=== PATIENT | female | born 1990 | race Two or more races ===

== ENCOUNTER 2019-02-17 20:50 | Inpatient (IN) | payer OTHER ==
[2019-02-17 21:02] VITALS: BMI 25.4
--- NOTE | 2019-02-17 21:25 | HP ---
COWS - Scale Resting Pulse: 2= [place] 101-120 Sweatin=Flushed/Facial Moisture Restless Observation: 1= Difficult to Sit Still Pupil Size: 0= Normal to Room Light Bone or Joint Aches: 4=Acute Joint/Muscle Pain Runny Nose/ Eye Tearin= Runny Nose/Eyes GI Upset > 30mins: 2= Nausea/Diarrhea Tremor Observation: 0= None Yawning Observation: 1= 1-2x During Session Anxiety or Irritability: 2=Irritable/Anxious Goose Flesh Skin: 0=Smooth Skin COWS Score: 16 CIWA Score - Admission Criteria OASAS Guidelines: Admission for Medically Managed Detox: Requires at least one of the followin. CIWA greater than 12 2. Seizures within the past 24 hours 3. Delirium tremens within the past 24 hours 4. Hallucinations within the past 24 hours 5. Acute intervention needed for co occurring medical disorder 6. Acute intervention needed for co occurring psychiatric disorder 7. Severe withdrawal that cannot be handled at a lower level of care (continued vomiting, continued diarrhea, abnormal vital signs) requiring intravenous medication and/or fluids 8. Admission [facility] Chief Complaint: c/o withdrawal sx's. seeking detox Allergies/Adverse Reactions: Allergies Allergy/AdvReac Type Severity Reaction Status Date / Time No Known Allergies Allergy Verified 02/17/19 20:55 History of Present Illness: 28 Y.O. MALE WITH HX/O OPIOID AND BENZO DEPENDENCE HERE FOR DETOX. CLIENT IS REFERRED BY HER SIGNIFICANT OTHER WHOM ALSO IS A PATIENT HERE. SHE PRESENTS WITH C/O WITHDRAWAL SX'S. COWS 16. SHEA 0.43. CLIENT STATES ALCOHOL IS NOT HER THING. DRINK MAYBE ONCE A WEEK. STATES SHE DOES NOT HAVE A PROBLEM WITH ALCOHOL. HER DRUG OF CHOICE IS HEROIN AND XANAX. UTOX +THC, FEN, MET, AMP. D/W CLIENT THAT HER URINE IS NEGATIVE FOR BENZO. SHE WILL BE TREATED WITH PRN KLONOPIN AND DETOXED WITH METHADONE FOR HER HEROIN USE. SHE REPORTS HEROIN USE DAILY, WELL THE XANAX BUT HAS NOT HAS XANAX IN THE LAST 2 DAYS. DENIES ANY SIGNIFICANT PERIOD OF CLEAN TIME. IVDU, + HX/O DRUG OVERDOSE, HX/O BENZO WITHDRAWAL SEIZURE REPORTED. LAST BEING OVER A YEAR AGO. HOMELESS, UNMEPLOYED, DENIES LEGALS PMHX-PCOS PSYCH- DEPRESSION, ANXIETY Exam Limitations: No Limitations - Ebola screening Have you traveled outside of the country in the last 21 days: No (N) Have you had contact with anyone from an Ebola affected area: No Do you have a fever: No - Review of Systems Constitutional: Chills, Loss of Appetite, Malaise, Night Sweats, Changes in sleep, Unintentional Wgt. Loss EENT: reports: Ear Pain (RIGHT EAR POPPING FOR A COUPLE OF WEEKS NOW. DENIES HEARING LOSS), Nose Congestion (RUNNY NOSE), Dental Problems (MISSING TEETH) Respiratory: reports: No Symptoms reported Cardiac: reports: No Symptoms Reported GI: reports: Poor Appetite, Poor Fluid Intake, Abdominal cramping : reports: No Symptoms Reported Musculoskeletal: reports: Back Pain, Joint Pain, Neck Pain Integumentary: reports: No Symptoms Reported Neuro: reports: Numbness (INTERMITTENT), Seizure (HX/O WITHDRAWAL SZ DUE TO BENZO WITHDRAWAL) Endocrine: reports: No Symptoms Reported Hematology: reports: No Symptoms Reported Psychiatric: reports: Orientated x3, Anxious, Depressed Other Systems: Reviewed and Negative Patient History - Patient Medical History Hx Anemia: No Hx Asthma: No Hx Chronic Obstructive Pulmonary Disease (COPD): No Hx Cancer: No Hx Cardiac Disorders: No Hx Congestive Heart Failure: No Hx Hypertension: No Hx Hypercholesterolemia: No Hx Pacemaker: No HX Cerebrovascular Accident: No Hx Seizures: Yes (R/T BENZO WITHDRAWAL LAST BEING 1 YEAR AGO) Hx Dementia: No Hx Diabetes: No Hx Gastrointestinal Disorders: No Hx Liver Disease: No Hx Genitourinary Disorders: No Hx Sexually Transmitted Disorders: No Hx Renal Disease (ESRD): No Hx Thyroid Disease: No Hx Human Immunodeficiency Virus (HIV): No Hx Hepatitis C: No Hx Depression: Yes (HX/O) Hx Suicide Attempt: No Hx Bipolar Disorder: No Hx Schizophrenia: No Other Medical History: HX/O ANXIETY, PCOS - Patient Surgical History Past Surgical History: Yes Hx Appendectomy: Yes Anesthesia Reaction: No - PPD History Previous Implant?: Yes Documented Results: Negative w/o proof Implanted On Prior R Admission?: No PPD to be Administered?: Yes - Reproductive History Patient is a Female of Child Bearing Age (11 -55 yrs old): Yes Last Menstrual Period: 11/17/18 LMP comment: IRREG Patient : No ([facility] [place] - Smoking Cessation Smoking history: Current every day smoker Have you smoked in the past 12 months: Yes Aproximately how many cigarettes per day: 10 Cigars Per Day: 0 Hx Chewing Tobacco Use: No Initiated information on smoking cessation: Yes 'Breaking Loose' booklet given: 02/17/19 - Substance & Tx. History Hx Alcohol Use: No Hx Substance Use: Yes Substance Use Type: Marijuana, Opiates Hx Substance Use Treatment: Yes ([facility]) - Substances abused Alcohol Substance route: Oral Frequency: 1-3 times last 30 days Amount used: 1 bottle wine 3 beer bottle, pint pf vodka Age of first use: 11 (STATES DRINKS ONCE A WEEK) Date of last use: 02/17/19 (1/2 PINT) Heroin Substance route: Injection Frequency: Daily Amount used: 1-2 bundle Age of first use: 14 Date of last use: 02/16/19 Alprazolam (Xanax) Substance route: Oral Frequency: Daily Amount used: 3 mg/day Age of first use: 14 Date of last use: 02/15/19 Family Disease History - Family Disease History Family History: Denies Admission Physical Exam [facility] - Vital Signs Vital Signs: Vital Signs - 24 hr 02/17/19 02/17/19 20:54 21:11 Temperature 98.9 F 98.9 F Pulse Rate 108 H 108 H Respiratory 18 18 Rate Blood Pressure 117/88 117/88 - Physical General Appearance: Yes: Mild Distress, Sweating, Anxious HEENTM: Yes: EOMI, Normocephalic, Normal Voice, ABBY, Pharynx Normal, Nasal Congestion, Rhinorrhea, Other (POOR DENTITION) Respiratory: Yes: Chest Non-Tender, Lungs Clear, Normal Breath Sounds, No Respiratory Distress, No Accessory Muscle Use Neck: Yes: No masses,lesions,Nodules, Supple, Trachea in good position Breast: Yes: Breasts Symetrical Cardiology: Yes: Regular Rhythm, S1, S2, Tachycardia Abdominal: Yes: Normal Bowel Sounds, Non Tender, Soft Genitourinary: Yes: Within Normal Limits Back: Yes: Normal Inspection Musculoskeletal: Yes: full range of Motion, Gait Steady Extremities: Yes: Normal Capillary Refill, Normal Range of Motion, Non-Tender Neurological: Yes: Fully Oriented, Alert, Motor Strength 5/5, Depressed Affect Integumentary: Yes: Warm Lymphatic: Yes: Within Normal Limits - Diagnostic (1) Opioid dependence with withdrawal Current Visit: Yes Status: Acute (2) Benzodiazepine abuse Current Visit: Yes Status: Suspected (3) Cannabis dependence, uncomplicated Current Visit: Yes Status: Acute (4) Alcohol consumption binge drinking Current Visit: Yes Status: Suspected (5) Nicotine dependence Current Visit: Yes Status: Chronic Qualifiers: Nicotine product type: cigarettes Substance use status: uncomplicated Qualified Code(s): F17.210 - Nicotine dependence, cigarettes, uncomplicated (6) History of PCOS Current Visit: Yes Status: Chronic (7) History of depression Current Visit: Yes Status: Chronic (8) History of anxiety Current Visit: Yes Status: Chronic (9) Substance induced mood disorder Current Visit: Yes Status: Suspected (10) IVDU (intravenous drug user) Current Visit: Yes Status: Acute (11) Homeless Current Visit: Yes Status: Suspected Cleared for Admission S - Detox or Rehab [facility] Level of Care: Medically Managed Detox Regimen/Protocol: Methadone Claeared for Rehab Admission: No Breathalyzer - Breathalyzer Breathalyzer: 0.043 Urine Drug Screen - Test Device Lot number: [id number] Expiration date: 11/16/20 - Control Is test valid?: Yes - Results Drug screen NEGATIVE: No Urine drug screen results: THC-Marijuana, MET-Methamphetamine, AMP-Amphetamines , FEN-Fentanyl Inpatient Rehab Admission - Rehab Decision to Admit Inpatient rehab admission?: No
[2019-02-17] MEDS ORDERED: NICOTINE POLACRILEX 2 MG GUM BUC PRN (21:35)
[2019-02-17] MEDS ORDERED: BISMUTH SUBSALICYLATE 524 MG/30 ML UD PO PRN (21:35)
[2019-02-17] MEDS ORDERED: METHADONE HCL 10 MG TABLET (FOR DETOX USE ONLY) PO ONE (21:35)
[2019-02-17] MEDS ORDERED: P-EPHED 60MG/TRIPROLIDI 2.5MG TABLET PO PRN (21:35)
[2019-02-17] MEDS ORDERED: MAG HYDROX/AL HYDROX/SIMETH 30 ML UNIT-DOSE CUP PO PRN (21:35)
[2019-02-17] MEDS ORDERED: DICYCLOMINE HCL 10 MG CAPSULE PO PRN (21:35)
[2019-02-17] MEDS ORDERED: guaiFENesin 200 MG/10 ML 10 ML UNIT-DOSE CUPS PO PRN (21:35)
[2019-02-17] MEDS ORDERED: ONDANSETRON *ODT* 4 MG TABLET SL PRN (21:35)
[2019-02-17] MEDS ORDERED: MAGNESIUM CITRATE 300 ML BOTTLE PO PRN (21:35)
[2019-02-17] MEDS ORDERED: NALOXONE HCL 0.4 MG/ML VIAL IM PRN (21:35)
[2019-02-17] MEDS ORDERED: ACETAMINOPHEN 325 MG TABLET (FP) PO PRN ×2 (21:35)
[2019-02-17] MEDS ORDERED: MENTHOL/PHENOL 1 EACH UD MM PRN (21:35)
[2019-02-17] MEDS: THIAMINE HCL 100 MG TABLET (FP) PO SCH (23:10)
[2019-02-17] MEDS: MELATONIN 5 MG TABLETS PO PRN (23:11)
[2019-02-17] MEDS: clonazePAM 0.5 MG TABLET PO PRN (23:13)
[2019-02-17] MEDS: cloNIDine HCL 0.1 MG TABLET PO PRN (23:19)
[2019-02-18] MEDS: IBUPROFEN 400 MG TABLET (FP) PO PRN (00:41)
[2019-02-18] MEDS: clonazePAM 0.5 MG TABLET PO PRN ×3 (05:31→19:48)
[2019-02-18] MEDS ORDERED: hydrOXYzine PAMOATE 50 MG CAPSULE (FP) PO PRN (08:25)
[2019-02-18] MEDS: NICOTINE POLACRILEX 4 MG GUM BUC PRN ×2 (08:33→19:06)
[2019-02-18] MEDS ORDERED: METHADONE HCL 10 MG TABLET (FOR DETOX USE ONLY) ONE (09:22)
[2019-02-18] MEDS ORDERED: METHADONE HCL 5 MG TABLET (FOR DETOX USE ONLY) ONE (09:22)
[2019-02-18 09:57] LABS: HEMATOCRIT 37.4 % (32.4-45.2); HEMOGLOBIN 12.4 GM/dL (10.7-15.3); MCH 28.1 pg (25.7-33.7); MCHC 33.3 g/dl (32.0-36.0); MEAN CELL VOLUME 84.6 fl (80-96); MEAN PLT VOLUME 8.8 fl (7.5-11.1); RBC 4.42 M/mm3 (3.60-5.2); RDW 14.3 % (11.6-15.6); WHITE BLOOD COUNT 5.5 K/mm3 (4.0-10.0)
[2019-02-18] MEDS ORDERED: METHADONE (DETOX) 20 MG, METHADONE (DETOX) 5 MG PO ONE (10:00)
[2019-02-18] MEDS: PRENATAL VITAMINS W/ FOLIC ACID TABLET (FP) PO SCH (10:06)
[2019-02-18] MEDS: NICOTINE 21 MG/24 HOURS TOPICAL PATCH TD SCH (10:07)
[2019-02-18] MEDS: cloNIDine HCL 0.1 MG TABLET PO PRN ×2 (10:09→19:48)
[2019-02-18 10:18] LABS: PLATELET COUNT 313 K/MM3 (134-434)
[2019-02-18 10:19] LABS: ALBUMIN 3.5 g/dl (3.4-5.0); BILIRUBIN,TOTAL 0.4 mg/dL (0.2-1); BLOOD UREA NITROGEN 12.3 mg/dL (7-18); CALCIUM 9.1 mg/dL (8.5-10.1); CREATININE 0.8 mg/dL (0.55-1.3); POTASSIUM 3.9 mmol/L (3.5-5.1); TOT PROT 6.8 g/dl (6.4-8.2)
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
--- NOTE | 2019-02-18 13:56 | EKG ---
Test Reason : Blood Pressure : / mmHG Vent. Rate : 097 BPM Atrial Rate : 097 BPM P-R Int : 140 ms QRS Dur : 074 ms QT Int : 344 ms P-R-T Axes : 041 056 042 degrees QTc Int : 436 ms NORMAL SINUS RHYTHM NORMAL ECG NO PREVIOUS ECGS AVAILABLE Confirmed by YOLANDA ERWIN MD ([id number]) on 02/18/2019 1:56:27 PM Referred By: Erin Seth Confirmed By:YOLANDA ERWIN MD
--- NOTE | 2019-02-18 13:58 | PN ---
BHS COWS - Scale Resting Pulse: 1= [place] 81-100 Sweatin= Chills/Flushing Restless Observation: 1= Difficult to Sit Still Pupil Size: 0= Normal to Room Light Bone or Joint Aches: 2= Severe Diffuse Aches Runny Nose/ Eye Tearin= Runny Nose/Eyes GI Upset > 30mins: 1= Stomach Cramp Tremor Observation of Outstretched Hands: 2= Slight Tremor Visible Yawning Observation: 2= >3x During Session Anxiety or Irritability: 2=Irritable/Anxious Goose Flesh Skin: 0=Smooth Skin COWS Score: 14 BHS Progress Note (SOAP) Subjective: sweats shakes interrupted sleep body aches nausea anxiety Objective: 02/18/19 13:59 Vital Signs Temperature 98.7 F 02/18/19 13:52 Pulse Rate 78 02/18/19 13:52 Respiratory Rate 18 02/18/19 13:52 Blood Pressure 94/66 02/18/19 13:52 O2 Sat by Pulse Oximetry (%) Laboratory Tests 02/18/19 02/18/19 02/18/19 07:00 07:00 07:00 WBC 5.5 RBC 4.42 Hgb 12.4 Hct 37.4 MCV 84.6 MCH 28.1 MCHC 33.3 RDW 14.3 Plt Count 313 MPV 8.8 Sodium 141 Potassium 3.9 Chloride 104 Carbon Dioxide 32 Anion Gap 5 L BUN 12.3 Creatinine 0.8 Est GFR (CKD-EPI)AfAm 114.66 Est GFR (CKD-EPI)NonAf 98.93 Random Glucose 99 Calcium 9.1 Total Bilirubin 0.4 AST 7 L ALT 15 Alkaline Phosphatase 51 Total Protein 6.8 Albumin 3.5 RPR Titer Nonreactive labs noted aaox3 ambulating no acute distress Assessment: 02/18/19 13:59 withdrawal sx Plan: continue detox increase fluids atarax 25mg prn nicotine gum 4mg
[2019-02-18] MEDS ORDERED: COLLOIDAL OATMEAL 1 BAR EACH TP ONE (14:56)
--- NOTE | 2019-02-18 14:59 | PN ---
S Progress Note Note: pt c/o of rash to legs; legs assessed large patches of hives noted. pt states this has happened to her in the past. pt will be started on benadryl 25mg prn, hydrocortizone cream 1% pt also c/o BV vaginal discharge with fishy odor; flagy 500mg tid x 7 days ordered.
[2019-02-18] MEDS ORDERED: diphenhydrAMINE HCL 25 MG CAPSULE (FP) PO ONE (15:00)
[2019-02-18] MEDS: METHOCARBAMOL 500 MG TABLET PO PRN (16:04)
[2019-02-18] MEDS: THIAMINE HCL 100 MG TABLET (FP) PO SCH (22:27)
[2019-02-18] MEDS: metroNIDAZOLE 250 MG TABLET PO SCH (22:27)
[2019-02-18] MEDS: HYDROCORTISONE 1% TOPICAL CREAM 30 GM TUBE TP SCH ×2 (22:56→23:47)
[2019-02-19] MEDS: NICOTINE POLACRILEX 4 MG GUM BUC PRN ×4 (00:04→20:55)
[2019-02-19] MEDS: metroNIDAZOLE 250 MG TABLET PO SCH ×3 (05:28→22:16)
[2019-02-19] MEDS: clonazePAM 0.5 MG TABLET PO PRN ×3 (05:30→20:54)
[2019-02-19] MEDS ORDERED: METHADONE HCL 10 MG TABLET (FOR DETOX USE ONLY) PO ONE (10:00)
[2019-02-19] MEDS: HYDROCORTISONE 1% TOPICAL CREAM 30 GM TUBE TP SCH ×4 (10:41→22:16)
[2019-02-19] MEDS: PRENATAL VITAMINS W/ FOLIC ACID TABLET (FP) PO SCH (10:42)
[2019-02-19] MEDS: NICOTINE 21 MG/24 HOURS TOPICAL PATCH TD SCH (10:42)
[2019-02-19] MEDS: diphenhydrAMINE HCL 25 MG CAPSULE (FP) PO PRN ×2 (10:43→18:28)
[2019-02-19] MEDS: cloNIDine HCL 0.1 MG TABLET PO PRN ×3 (11:52→22:18)
--- NOTE | 2019-02-19 11:52 | PN ---
S COWS - Scale Resting Pulse: 1= [place] 81-100 Sweatin= Chills/Flushing Restless Observation: 1= Difficult to Sit Still Pupil Size: 0= Normal to Room Light Bone or Joint Aches: 2= Severe Diffuse Aches Runny Nose/ Eye Tearin= None GI Upset > 30mins: 0= None Tremor Observation of Outstretched Hands: 1= Tremor [place], Not Seen Yawning Observation: 1= 1-2x During Session Anxiety or Irritability: 2=Irritable/Anxious Goose Flesh Skin: 0=Smooth Skin COWS Score: 9 S Progress Note (SOAP) Subjective: c/o sweats, anxiety, and irritability. Objective: 02/19/19 11:51 Vital Signs 02/19/19 02/19/19 07:08 09:53 Temperature 97.7 F 98.1 F Pulse Rate 89 95 H Respiratory 16 17 Rate Blood Pressure 102/57 L 109/60 Lab Results WBC 5.5 K/mm3 (4.0-10.0) 02/18/19 07:00 RBC 4.42 M/mm3 (3.60-5.2) 02/18/19 07:00 Hgb 12.4 GM/dL (10.7-15.3) 02/18/19 07:00 Hct 37.4 % (32.4-45.2) 02/18/19 07:00 MCV 84.6 fl (80-96) 02/18/19 07:00 MCHC 33.3 g/dl (32.0-36.0) 02/18/19 07:00 RDW 14.3 % (11.6-15.6) 02/18/19 07:00 Plt Count 313 K/MM3 (134-434) 02/18/19 07:00 Sodium 141 mmol/L (136-145) 02/18/19 07:00 Potassium 3.9 mmol/L (3.5-5.1) 02/18/19 07:00 Chloride 104 mmol/L (98-107) 02/18/19 07:00 Carbon Dioxide 32 mmol/L (21-32) 02/18/19 07:00 Anion Gap 5 MMOL/L (8-16) L 02/18/19 07:00 BUN 12.3 mg/dL (7-18) 02/18/19 07:00 Creatinine 0.8 mg/dL (0.55-1.3) 02/18/19 07:00 Random Glucose 99 mg/dL (74-106) 02/18/19 07:00 Calcium 9.1 mg/dL (8.5-10.1) 02/18/19 07:00 Labs noted. Assessment: 02/19/19 11:52 AOX3, in no acute distress. Full ROM, ambulating in the unit. Withdrawal symptoms. Plan: continue detox.
[2019-02-19] MEDS: METHOCARBAMOL 500 MG TABLET PO PRN ×2 (13:04→20:31)
[2019-02-19] MEDS: IBUPROFEN 400 MG TABLET (FP) PO PRN (20:54)
[2019-02-19] MEDS: MELATONIN 5 MG TABLETS PO PRN (22:16)
[2019-02-19] MEDS: THIAMINE HCL 100 MG TABLET (FP) PO SCH (22:16)
[2019-02-20] MEDS: metroNIDAZOLE 250 MG TABLET PO SCH ×3 (05:44→22:52)
[2019-02-20] MEDS: IBUPROFEN 400 MG TABLET (FP) PO PRN ×2 (07:38→13:51)
[2019-02-20] MEDS ORDERED: METHADONE (DETOX) 10 MG, METHADONE (DETOX) 5 MG PO ONE (10:00)
[2019-02-20] MEDS ORDERED: METHADONE HCL 5 MG TABLET (FOR DETOX USE ONLY) ONE (10:14)
[2019-02-20] MEDS ORDERED: METHADONE HCL 10 MG TABLET (FOR DETOX USE ONLY) ONE (10:14)
[2019-02-20] MEDS: PRENATAL VITAMINS W/ FOLIC ACID TABLET (FP) PO SCH (10:23)
[2019-02-20] MEDS: HYDROCORTISONE 1% TOPICAL CREAM 30 GM TUBE TP SCH ×4 (10:23→22:52)
[2019-02-20] MEDS: NICOTINE POLACRILEX 4 MG GUM BUC PRN ×2 (10:24→12:43)
[2019-02-20] MEDS: clonazePAM 0.5 MG TABLET PO PRN ×3 (10:25→22:55)
[2019-02-20] MEDS ORDERED: BISACODYL 5 MG TABLET.DR (FP) PO ONE (11:04)
[2019-02-20] MEDS ORDERED: BENZOCAINE 20 % GEL TUBE MM PRN (11:05)
[2019-02-20] MEDS: NICOTINE 21 MG/24 HOURS TOPICAL PATCH TD SCH (11:26)
[2019-02-20] MEDS: METHOCARBAMOL 500 MG TABLET PO PRN ×2 (13:12→19:27)
[2019-02-20] MEDS: diphenhydrAMINE HCL 25 MG CAPSULE (FP) PO PRN (13:52)
--- NOTE | 2019-02-20 17:56 | PN ---
BHS COWS - Scale Resting Pulse: 1= [place] 81-100 Sweatin= Chills/Flushing Restless Observation: 1= Difficult to Sit Still Pupil Size: 0= Normal to Room Light Bone or Joint Aches: 1= Mild Discomfort Runny Nose/ Eye Tearin= None GI Upset > 30mins: 1= Stomach Cramp Tremor Observation of Outstretched Hands: 2= Slight Tremor Visible Yawning Observation: 0= None Anxiety or Irritability: 2=Irritable/Anxious Goose Flesh Skin: 0=Smooth Skin COWS Score: 9 BHS Progress Note (SOAP) Subjective: Body ache, sweating, anxious, interrupted sleep, constipation since admission ( wants dulcolax); c/o toothache, wants orajel Objective: 02/20/19 17:53 Last Vital Signs Temp Pulse Resp BP Pulse Ox 98.2 F 86 16 114/70 02/20/19 13:58 02/20/19 13:58 02/20/19 13:58 02/20/19 13:58 PE: Right upper lateral teeth with mild cavities at gumline, no redness noted Laboratory Tests 02/18/19 02/18/19 02/18/19 07:00 07:00 07:00 WBC 5.5 RBC 4.42 Hgb 12.4 Hct 37.4 MCV 84.6 MCH 28.1 MCHC 33.3 RDW 14.3 Plt Count 313 MPV 8.8 Sodium 141 Potassium 3.9 Chloride 104 Carbon Dioxide 32 Anion Gap 5 L BUN 12.3 Creatinine 0.8 Est GFR (CKD-EPI)AfAm 114.66 Est GFR (CKD-EPI)NonAf 98.93 Random Glucose 99 Calcium 9.1 Total Bilirubin 0.4 AST 7 L ALT 15 Alkaline Phosphatase 51 Total Protein 6.8 Albumin 3.5 RPR Titer Nonreactive Labs reviewed Assessment: 02/20/19 17:54 Withdrawal sxs Patient c/o constipation and toothache Plan: Continue detox Encouraged PO water intake Acute constipation: dulcolax 10mg PO x 1 dose Toothache: orajel prn, peridex solution 15ml swish and spit Follow up with your Dentist post discharge
[2019-02-20] MEDS: THIAMINE HCL 100 MG TABLET (FP) PO SCH (22:51)
[2019-02-20] MEDS: MELATONIN 5 MG TABLETS PO PRN (22:51)
[2019-02-20] MEDS: CHLORHEXIDINE GLUCONATE 0.12% 15ML CUP MM SCH (22:53)
[2019-02-21] MEDS: metroNIDAZOLE 250 MG TABLET PO SCH (06:21)
[2019-02-21] MEDS: NICOTINE POLACRILEX 4 MG GUM BUC PRN ×3 (06:27→22:10)
[2019-02-21] MEDS: diphenhydrAMINE HCL 25 MG CAPSULE (FP) PO PRN (06:52)
[2019-02-21] MEDS ORDERED: METHADONE HCL 10 MG TABLET (FOR DETOX USE ONLY) PO ONE (10:00)
[2019-02-21] MEDS: PRENATAL VITAMINS W/ FOLIC ACID TABLET (FP) PO SCH (10:46)
[2019-02-21] MEDS: clonazePAM 0.5 MG TABLET PO PRN (10:46)
[2019-02-21] MEDS: NICOTINE 21 MG/24 HOURS TOPICAL PATCH TD SCH (10:46)
[2019-02-21] MEDS: MAGNESIUM HYDROX 2400MG/30ML ORAL SUSPENSION 30 ML CUP PO PRN ×2 (10:51→22:10)
[2019-02-21 10:54] LABS: URINE APPEARANCE CLEAR; URINE BILIRUBIN NEGATIVE (NEGATIVE); URINE COLOR YELLOW; URINE GLUCOSE (UA) NEGATIVE (NEGATIVE); URINE KETONE NEGATIVE (NEGATIVE); URINE LEUK ESTERASE NEGATIVE (NEGATIVE); URINE NITRITE NEGATIVE (NEGATIVE); URINE PROTEIN NEGATIVE (NEGATIVE); URINE UROBILINOGEN 0.2 mg/dL (0.2-1.0)
[2019-02-21] MEDS ORDERED: diazePAM 5 MG TABLET PO PRN (11:21)
--- NOTE | 2019-02-21 11:26 | PN ---
BHS COWS - Scale Resting Pulse: 1= [place] 81-100 Sweatin= No chills or Flushing Restless Observation: 0= Sits Still Pupil Size: 0= Normal to Room Light Bone or Joint Aches: 2= Severe Diffuse Aches Runny Nose/ Eye Tearin= None GI Upset > 30mins: 0= None Tremor Observation of Outstretched Hands: 0= None Yawning Observation: 0= None Anxiety or Irritability: 2=Irritable/Anxious Goose Flesh Skin: 0=Smooth Skin COWS Score: 5 BHS Progress Note (SOAP) Subjective: muscle cramping anxiety Objective: 02/21/19 11:24 Vital Signs Temperature 98.2 F 02/21/19 09:28 Pulse Rate 83 02/21/19 09:28 Respiratory Rate 18 02/21/19 09:28 Blood Pressure 115/65 02/21/19 09:28 O2 Sat by Pulse Oximetry (%) aaox3 ambulating no acute distress Assessment: 02/21/19 11:25 mild withdrawal sx Plan: continue detox increase fluids flexiril 10mg prn valium prn d/c in am
[2019-02-21] MEDS: CYCLOBENZAPRINE HCL 10 MG TABLET (FP) PO PRN ×2 (12:57→22:06)
[2019-02-21] MEDS: CHLORHEXIDINE GLUCONATE 0.12% 15ML CUP MM SCH ×2 (13:00→22:07)
[2019-02-21] MEDS: diazePAM 5 MG TABLET PO PRN ×3 (13:00→22:05)
[2019-02-21] MEDS: HYDROCORTISONE 1% TOPICAL CREAM 30 GM TUBE TP SCH ×4 (13:06→23:27)
[2019-02-21] MEDS: IBUPROFEN 400 MG TABLET (FP) PO PRN (18:52)
[2019-02-21] MEDS: THIAMINE HCL 100 MG TABLET (FP) PO SCH (22:06)
[2019-02-22] MEDS ORDERED: METHADONE HCL 5 MG TABLET (FOR DETOX USE ONLY) PO ONE (06:00)
[2019-02-22] MEDS: metroNIDAZOLE 250 MG TABLET PO SCH ×2 (06:04)
[2019-02-22] MEDS: diazePAM 5 MG TABLET PO PRN (06:35)
[2019-02-22 07:17] VITALS: BP 106/74; PULSE 81; TEMP 97.7
[2019-02-22] MEDS: diphenhydrAMINE HCL 25 MG CAPSULE (FP) PO PRN (08:55)
--- NOTE | 2019-02-22 09:30 | DS ---
[facility] Detox Discharge Summary Admission Date: 02/17/19 Discharge Date: 02/22/19 - History Present History: Cannabis Dependence, Opioid Dependence - Physical Exam Results Vital Signs: Vital Signs Temperature 97.7 F 02/22/19 07:16 Pulse Rate 81 02/22/19 07:16 Respiratory Rate 18 02/22/19 07:16 Blood Pressure 106/74 02/22/19 07:16 O2 Sat by Pulse Oximetry (%) Pertinent Admission Physical Exam Findings: pt arrived in withdrawals Laboratory Tests 02/17/19 02/18/19 02/18/19 21:12 07:00 07:00 WBC 5.5 RBC 4.42 Hgb 12.4 Hct 37.4 MCV 84.6 MCH 28.1 MCHC 33.3 RDW 14.3 Plt Count 313 MPV 8.8 Sodium 141 Potassium 3.9 Chloride 104 Carbon Dioxide 32 Anion Gap 5 L BUN 12.3 Creatinine 0.8 Est GFR (CKD-EPI)AfAm 114.66 Est GFR (CKD-EPI)NonAf 98.93 Random Glucose 99 Calcium 9.1 Total Bilirubin 0.4 AST 7 L ALT 15 Alkaline Phosphatase 51 Total Protein 6.8 Albumin 3.5 Urine Color Urine Appearance Urine pH Ur Specific Guild Urine Protein Urine Glucose (UA) Urine Ketones Urine Blood Urine Nitrite Urine Bilirubin Urine Urobilinogen Ur Leukocyte Esterase POC Urine HCG, Qual Negative RPR Titer TB (QFT) Incubation TB Test (QFT) Nil TB Test (QFT) Mitogen TB Test (QFT) Antigen TB Test (QFT) TB Positive Criteria 02/18/19 02/18/19 02/21/19 07:00 07:00 08:25 WBC RBC Hgb Hct MCV MCH MCHC RDW Plt Count MPV Sodium Potassium Chloride Carbon Dioxide Anion Gap BUN Creatinine Est GFR (CKD-EPI)AfAm Est GFR (CKD-EPI)NonAf Random Glucose Calcium Total Bilirubin AST ALT Alkaline Phosphatase Total Protein Albumin Urine Color Yellow Urine Appearance Clear Urine pH 8.0 Ur Specific Guild 1.011 Urine Protein Negative Urine Glucose (UA) Negative Urine Ketones Negative Urine Blood Negative Urine Nitrite Negative Urine Bilirubin Negative Urine Urobilinogen 0.2 Ur Leukocyte Esterase Negative POC Urine HCG, Qual RPR Titer Nonreactive TB (QFT) Incubation TB Test (QFT) Nil 0.26 TB Test (QFT) Mitogen >10.00 TB Test (QFT) Antigen 0.29 TB Test (QFT) Negative TB Positive Criteria today pt is aaox3 ambulating no acute distress no s/s of withdrawal sx - Treatment Hospital Course: Detox Protocol Followed, Detoxed Safely, Responded well, Discharged Condition Good, Rehab Referral Accepted Patient has Accepted a Rehab Referral to: pt declined rehab; referral to outpatient rehab - Medication Discharge Medications: Ambulatory Orders Chlorhexidine Gluconate [Peridex -] 15 ml MM BID #1 bot 02/22/19 metroNIDAZOLE [Flagyl -] 500 mg PO TID #6 tablet 02/22/19 - Diagnosis (1) Cannabis dependence, uncomplicated Current Visit: Yes Status: Chronic (2) IVDU (intravenous drug user) Current Visit: Yes Status: Chronic (3) Opioid dependence with withdrawal Current Visit: Yes Status: Chronic (4) Substance-induced anxiety disorder Current Visit: Yes Status: Acute (5) History of PCOS Current Visit: Yes Status: Chronic (6) History of anxiety Current Visit: Yes Status: Chronic (7) History of depression Current Visit: Yes Status: Chronic (8) Nicotine dependence Current Visit: Yes Status: Chronic Qualifiers: Nicotine product type: cigarettes Substance use status: uncomplicated Qualified Code(s): F17.210 - Nicotine dependence, cigarettes, uncomplicated (9) Benzodiazepine abuse Current Visit: Yes Status: Suspected (10) Substance induced mood disorder Current Visit: Yes Status: Suspected - AMA Did Patient Leave Against Medical Advice: No
== END 2019-02-22 08:58 | disposition home or self-care (01) | DRG 773 ==
LOC: YASAS 20:50 → Y6N 22:29
PROVIDERS: ADMIT Surgery; ATTEND Surgery
PROC: HZ2ZZZZ Detoxification Services for Substance Abuse Treatment (ICD-10-PCS; principal; 2019-02-17)
DX: F11.23 Opioid dependence with withdrawal (principal); F12.20 Cannabis dependence, uncomplicated; F10.10 Alcohol abuse, uncomplicated; F13.10 Sedative, hypnotic or anxiolytic abuse, uncomplicated; F17.210 Nicotine dependence, cigarettes, uncomplicated; F19.24 Other psychoactive substance dependence with psychoactive substance-induced mood disorder; F19.280 Other psychoactive substance dependence with psychoactive substance-induced anxiety disorder; K59.00 Constipation, unspecified; K08.89 Other specified disorders of teeth and supporting structures; L50.9 Urticaria, unspecified; N89.8 Other specified noninflammatory disorders of vagina; Z86.69 Personal history of other diseases of the nervous system and sense organs; Z59.0 Homelessness
CPT/HCPCS: 36415; 80053; 81003; 81025; 85027; 86480; 86593; 93005; 93010; J0735